=== PATIENT | female | born 1950 | race Caucasian/White ===

== ENCOUNTER 2019-05-24 13:17 | Inpatient (IN) | payer OTHER ==
[~2019-05-24] VITALS: Ht 157.5 cm; Wt 70.2 kg
[2019-05-24] VITALS (29 sets, daily range): BP systolic 111–189; BP diastolic 56–80; PULSE 79–100; RESP 10–30; Ht 157.5 cm; Wt 70.2 kg
[~2019-05-24 13:17] MED LIST: CEFAZOLIN 1 GM INJ ONE; MIDAZOLAM 1 MG/ML 2 ML INJ ONE; PROPOFOL 20 ML ONE; ROCURONIUM 50 MG INJ ONE
[2019-05-24] MEDS: LACTATED RINGER'S 1,000 ML IV SCH (14:09)
[2019-05-24] MEDS ORDERED: CEFAZOLIN 1 GM INJ ONE (14:12)
[2019-05-24] MEDS ORDERED: GELATIN SIZE 100 SPONGE ONE (14:12)
[2019-05-24] MEDS ORDERED: THROMBIN (BOVINE) 5,000 UNIT VIAL TP ONE (14:12)
[2019-05-24] MEDS ORDERED: HEPARIN 1000 UNITS/ML 10 ML INJ ONE (14:12)
[2019-05-24] MEDS ORDERED: LEVO100T8 PO (14:14)
[2019-05-24] MEDS ORDERED: PARO-37 PO (14:14)
[2019-05-24] MEDS ORDERED: LEVO88TA3 PO (14:14)
[2019-05-24] MEDS ORDERED: SURGIFOAM POWDER 1 GM KIT ONE (14:21)
[2019-05-24] MEDS ORDERED: SEVOFLURANE 15 MIN ONE (14:40)
[2019-05-24] MEDS ORDERED: EPHEDrine 25 MG/5 ML SYG ONE (14:40)
--- NOTE | 2019-05-24 14:45 | HPN ---
Date/Time of Note Date/Time of Note DATE: 05/24/19 TIME: 14:44 Interval H&P Admission Note Pt. seen H&P reviewed: No system changes Again discussed with patient and daughter pros and cons of surgery vs no surgery, various approaches, staged vs non staged. Overall risks approx 5% as printed on my preop consent form. All questions answered, no guarantees given. MARIA EUGENIA LICONA MD May 24, 2019 14:45
--- NOTE | 2019-05-24 14:59 | PREAC ---
Date/Time of Note Date/Time of Note DATE: 05/24/19 TIME: 14:56 Anesthesia Eval and Record Evaluation Time Pre-Procedure Interview DATE: 05/24/19 TIME: 14:56 Age 68 Sex female NPO: 8 hrs Preoperative diagnosis Lumbar Spinal Stenosis Planned procedure Anterior Lumbar Partial or Complete Corpectomy, Disectomy and Fusion L2-S1 using cages Titanium plate and screws Past Medical History Past Medical History: Includes Endo: Hypothyroid Psych: Depression Surgery & Anesthesia Issues No known issue Meds Anticoagulation: No Beta Norma within 24 hr: No Reason Beta Norma not given: Pt. not on B-Norma Reported Medications Paroxetine Hcl* (Paroxetine*) 20 Mg Tablet, 20 MG PO DAILY, TAB 05/24/19 Levothyroxine Sodium* (Levothyroxine Sodium*) 100 Mcg Tablet, 100 MCG PO BEFORE BREAKFAST, #30 TAB 05/24/19 Levothyroxine Sodium* (Levothyroxine Sodium*) 88 Mcg Tablet, 88 MCG PO BEFORE BREAKFAST, #30 TAB TAKE ONE TABLET BY MOUTH EVERY TWO DAYS 05/24/19 Current Medications Lactated Ringer's 1,000 ml @ 25 mls/hr Q24H IV Last administered on 05/24/19at 14:09; Admin Dose 25 MLS/HR; Start 05/24/19 at 14:00 Meds reviewed: Yes Allergies Coded Allergies: No Known Drug Allergies (Verified Allergy, Unknown, 05/24/19) Allergies Reviewed: Yes Labs/Studies Labs Reviewed: Reviewed by anesthesiologist Blood Bank Test 05/24/19 13:54 Blood Product Summary Counts test: N/A Studies: ECG (n/a), CXR (n/a) Pre-procedure Exam Last vitals Vital Signs Date Temp Pulse Resp B/P (MAP) Pulse Ox O2 O2 Flow FiO2 Time Delivery Rate 05/24/19 98.6 79 16 149/80 99 Room Air 14:04 (103) Airway: Adequate mouth opening, Adequate thyromental dist Mallampati: Mallampati II Teeth: Normal Lung: Normal Heart: Normal ASA Physical Status ASA physical status: 2 Emergency: None Planned Anesthetic General/MAC: ETT Nerve block: TAP (bilateral) Planned Pain Management Single shot nerve block, Parenteral pain med Pre-operative Attestations Prior to commencing anesthesia and surgery, the patient was re-evaluated, there was verification of: *The patient's identity *The results of appropriate recent lab work and preoperative vital signs *The above evaluation not changing prior to induction *Anesthetic plan, risk benefits, alternative and complications discussed with patient/family; questions answered; patient/family understands, accepts and wishes to proceed. SAMSON MINAYA MD May 24, 2019 14:59
[2019-05-24] MEDS ORDERED: ROPIVACAINE 0.5 % 30 ML VIAL ONE (15:03)
[2019-05-24] MEDS ORDERED: PHENYLephrine (100 MCG/ML) 10ML SYG ONE (15:05)
[2019-05-24] MEDS ORDERED: ONDANSETRON 4 MG INJ ONE (16:14)
[2019-05-24] MEDS ORDERED: METOCLOPRAMIDE 10 MG INJ ONE (16:14)
[2019-05-24] MEDS ORDERED: DEXAMETHASONE 4 MG/ML 5 ML INJ ONE (16:14)
[2019-05-24] MEDS ORDERED: SUGAMMADEX SODIUM 200 MG/2 ML VIAL IV ONE ×3 (17:24→17:36)
[2019-05-24] MEDS ORDERED: NEOMYC/POLYMYX/BACIT 30 GM OINT ONE (17:32)
--- NOTE | 2019-05-24 17:34 | OPPN ---
Date/Time of Note Date/Time of Note DATE: 05/24/19 TIME: 17:33 Operative Report Preoperative Diagnosis Mechanical LBP and LE radicular pain Postoperative Diagnosis same Operation/Procedure Performed ALIF L3-S1 Surgeon see signature line sales assistant entertainment and media Malekmehr Anesthesia: general Estimated blood loss: 150 - 200 ml's Transfusion Required none Specimen Sent Grafts/Implants PEEK cages, screws, allograft bone, formagraft Complications none MARIA EUGENIA LICONA MD May 24, 2019 17:34
[2019-05-24] MEDS ORDERED: NALOXONE (0.4 MG/ML) INJ ONE (17:53)
--- NOTE | 2019-05-24 17:56 | PAC ---
Date/Time of Note Date/Time of Note DATE: 05/24/19 TIME: 17:53 Post-Anesthesia Notes Post-Anesthesia Note Last documented vital signs Vital Signs Date Temp Pulse Resp B/P (MAP) Pulse Ox O2 O2 Flow FiO2 Time Delivery Rate 05/24/19 98.6 79 16 149/80 99 Room Air 17:44 (103) Activity: WNL Respiratory function: WNL Cardiovascular function: WNL Mental status: Baseline Pain reasonably controlled: Yes Hydration appropriate: Yes Nausea/Vomiting absent: Yes SAMSON MINAYA MD May 24, 2019 17:56
[2019-05-24] MEDS ORDERED: hydrALAzine 20 MG INJ ONE (18:24)
[2019-05-24] MEDS: hydrALAzine 20 MG INJ IV PRN ×2 (18:28→22:45)
[2019-05-24] MEDS ORDERED: METOCLOPRAMIDE 10 MG INJ IV PRN (18:30)
[2019-05-24] MEDS ORDERED: LABETALOL HCL 20MG INJ IV PRN (18:30)
[2019-05-24] MEDS ORDERED: EPHEDrine 25 MG/5 ML SYG IV PRN (18:30)
[2019-05-24] MEDS ORDERED: HYDROmorphONE 1 MG/5 ML IV SYRINGE IV PRN ×2 (18:30)
[2019-05-24] MEDS ORDERED: ONDANSETRON 4 MG INJ IV PRN ×2 (18:30→19:00)
[2019-05-24] MEDS ORDERED: FENTAnyl 50 MCG/ML VIAL IV PRN ×2 (18:30)
[2019-05-24] MEDS ORDERED: NACL 0.9% 3 ML SYG IV SCH (19:00)
[2019-05-24] MEDS ORDERED: NALOXONE (0.4 MG/ML) INJ IV PRN (19:00)
[2019-05-24] MEDS ORDERED: HYDROmorphONE 0.2 MG/ML PCA IV SCH (19:00)
[2019-05-24] MEDS: NS + KCL 20 MEQ 1,000 ML IV SCH (19:18)
--- NOTE | 2019-05-24 19:39 | OPR ---
DATE OF OPERATION: 05/24/2019 PREOPERATIVE DIAGNOSIS: Degenerative disk disease, lumbosacral spine. POSTOPERATIVE DIAGNOSIS: Degenerative disk disease, lumbosacral spine. PROCEDURES: 1. Anterior retroperitoneal exposure, interbody fusion, L3 to L4. 2. Anterior retroperitoneal exposure interbody fusion, L4 to L5. 3. Anterior retroperitoneal exposure interbody fusion, L5 to S1. 4. Repair of left common iliac vein. SURGEON: Pranay Pandey MD MECHANIC ASSISTANT: Sonny Licona MD ESTIMATED BLOOD LOSS: 120 mL. ANESTHESIA: General. INFORMED CONSENT: Risks, benefits, complications, alternative therapies were explained to the patien t. Consent was obtained. Risks and benefits that were explained to the patient included but not duckworth ited to bleeding, infection, damage to bowel, damage to ureter, wound infection, wound dehiscence, DV T, PE, loss of limb, loss of life, high-risk nature of the operation were fully explained and stresse d to the patient. All questions were answered. OPERATIVE TECHNIQUE: The patient was placed in supine position, prepped and draped in usual sterile fashion. I made a 12 cm incision in left paramedian, longitudinal, left lower quadrant extending jus t above the umbilicus. Incision was taken down to subcutaneous tissue which was then opened using el ectrocautery. Left anterior rectus sheath was opened in the direction of the wound. The left rectus muscle was mobilized superiorly and inferiorly. Bookwalter retractor was placed retracting the radha l contents to the right, left rectus muscle to left. After incising the posterior rectus sheath 3 cm superiorly, I dissected the left common iliac artery and vein, external iliac artery and vein. Midd le sacral vessels were ligated using titanium clips. The lowest segmental artery and vein on the lef t side were ligated using titanium clip. The iliolumbar vein was ligated using 2-0 silk ties and a t itanium clip. There was a small tear from branch of the left common iliac vein which was repaired us ing a 6-0 Prolene [id number]. The exposure for L3 to L4 and L4 to L5 was obtained by retracting the left common iliac artery and vein, vena cava and aorta to the right side. Exposure for L5 to S1 was obtained between the right and left common iliac artery and vein. We proceeded with the diskect samira and placement of new cage. Please refer to Dr. Licona's dictation for the details of that operati on. After all x-rays were satisfactorily read by Dr. Licona, needle count and sponge count was correc t. The wound was irrigated using antibiotic solution. Posterior rectus sheath was closed using 0 Vi cryl suture in running fashion. Anterior rectus sheath was irrigated again and closed in 2 layers of #1 Vicryl suture for anterior rectus sheath, 2-0 Vicryl suture for subcutaneous and zoe for the skin. The patient tolerated procedure well. Dictated By: PRANAY PANDEY MD FM/NTS Conf#: [id number] DID#: [id number] CC: SONNY LICONA MD;*End*
--- NOTE | 2019-05-24 19:42 | CONS ---
DATE OF ADMISSION: 05/24/2019 DATE OF CONSULTATION: 05/24/2019 REASON FOR CONSULTATION: Evaluation for spine exposure. HISTORY OF PRESENT ILLNESS: This is a 68-year-old female with history of degenerative disk disease, lumbosacral spine. The patient is here to be evaluated to undergo anterior retroperitoneal exposure and interbody fusion of lumbosacral spine. PAST MEDICAL HISTORY: None. ALLERGIES: NONE. SOCIAL HISTORY: No smoking, drinking or drug use. MEDICATION LIST: Reviewed. PHYSICAL EXAMINATION: VITAL SIGNS: Blood pressure is 110/60, pulse is 80, respirations 18. CARDIOVASCULAR: Normal S1, S2. LUNGS: Clear. ABDOMEN: Soft. EXTREMITIES: Warm. IMPRESSION: Degenerative disk disease, lumbosacral spine. RECOMMENDATIONS: We will proceed with anterior retroperitoneal exposure, interbody fusion of lumbosa cral spine. Risks, benefits, complications, alternative therapies were explained to the patient. Co nsent was obtained. Risks and benefits that were explained to the patient included but not limited t o bleeding, infection, damage to bowel, damage to ureter, wound infection, wound dehiscence, DVT, PE, loss of limb, loss of life, high-risk nature of the operation were fully explained and stressed the patient. All questions were answered. Dictated By: PRANAY MCKAY MD FM/NTS Conf#: [id number] DID#: [id number] CC: MARIA EUGENIA LICONA MD;*EndCC*
[2019-05-24] MEDS: DOCUSATE SODIUM 100 MG CAP PO SCH ×2 (19:44→20:51)
[2019-05-24] MEDS: CEFAZOLIN 2 GM/50 ML (PMX) 50 ML IVPB SCH (22:39)
[2019-05-25] VITALS (36 sets, daily range): BP systolic 100–170; BP diastolic 48–71; PULSE 88–106; RESP 8–22
[2019-05-25] MEDS: NS + KCL 20 MEQ 1,000 ML IV SCH ×3 (05:39→20:33)
[2019-05-25] MEDS: CEFAZOLIN 2 GM/50 ML (PMX) 50 ML IVPB SCH ×3 (05:39→22:04)
[2019-05-25] MEDS: DOCUSATE SODIUM 100 MG CAP PO SCH ×2 (08:15→20:35)
[2019-05-25] MEDS ORDERED: hydrALAzine 20 MG INJ ONE (13:36)
[2019-05-25] MEDS: LACTATED RINGER'S 1,000 ML IV SCH (13:40)
[2019-05-25] MEDS ORDERED: hydrALAzine 20 MG INJ IV ONE (14:00)
[2019-05-25] MEDS ORDERED: GELATIN SIZE 100 SPONGE ONE (14:13)
[2019-05-25] MEDS ORDERED: ROPIVACAINE 0.5 % 30 ML VIAL ONE (14:14)
[2019-05-25] MEDS ORDERED: THROMBIN 5000 UNIT VIAL ONE (14:14)
--- NOTE | 2019-05-25 16:26 | HPN ---
Date/Time of Note Date/Time of Note DATE: 05/25/19 TIME: 16:23 Interval H&P Admission Note Pt. seen H&P reviewed: No system changes Neurosurgery Preop Note Extensive d/w patient about all available options including surgery vs no surgery. Overall risk/complications 3-5% and benefits thoroughly discussed. All questions answered and no guarantees given. MARIA EUGENIA LICONA MD May 25, 2019 16:26
--- NOTE | 2019-05-25 16:38 | PREAC ---
Date/Time of Note Date/Time of Note DATE: 05/25/19 TIME: 16:38 Anesthesia Eval and Record Evaluation Time Pre-Procedure Interview DATE: 05/25/19 TIME: 16:38 Age 68 Sex female NPO: 8 hrs Preoperative diagnosis lumbar ddd Planned procedure posterior lumbar interbody fusion Past Medical History Past Medical History: Includes Endo: Hypothyroid Psych: Depression Surgery & Anesthesia Issues No known issue Meds Anticoagulation: No Beta Norma within 24 hr: No Reason Beta Norma not given: Pt. not on B-Norma Reported Medications Paroxetine Hcl* (Paroxetine*) 20 Mg Tablet, 20 MG PO DAILY, TAB 05/24/19 Levothyroxine Sodium* (Levothyroxine Sodium*) 100 Mcg Tablet, 100 MCG PO BEFORE BREAKFAST, #30 TAB 05/24/19 Levothyroxine Sodium* (Levothyroxine Sodium*) 88 Mcg Tablet, 88 MCG PO BEFORE BREAKFAST, #30 TAB TAKE ONE TABLET BY MOUTH EVERY TWO DAYS 05/24/19 Current Medications Lactated Ringer's 1,000 ml @ 25 mls/hr Q24H IV Last administered on 05/25/19at 13:40; Admin Dose 25 MLS/HR; Start 05/24/19 at 14:00 Acetaminophen/ Hydrocodone Bitart ([place] (5/325)) 1 tab Q4H PRN PO .PAIN 1-5; Start 05/24/19 at 19:00; Status Hold Ondansetron HCl (Zofran Inj) 4 mg Q6H PRN IV NAUSEA/VOMITING; Start 05/24/19 at 19:00 Al Hydrox/Mg Hydrox/Simethicone (Mag-Al Plus) 15 ml Q4H PRN PO .CONSTIPATION; Start 05/24/19 at 19:00 Docusate Sodium (Colace) 100 mg BID PO Last administered on 05/25/19at 08:15; Admin Dose 100 MG; Start 05/24/19 at 19:00 IV Flush (NS 3 ml) 3 ml PER PROTOCOL IV ; Start 05/24/19 at 19:00 Hydromorphone HCl (Dilaudid PROJECTS MANAGER) Q4PCA IV Last administered on 05/24/19at 18:57; Admin Dose 6 MG; Start 05/24/19 at 19:00 Naloxone HCl (Narcan) 0.2 mg Q2M PRN IV RR 8 BREATHS/MIN OR LESS; Start 05/24/19 at 19:00 Potassium Chloride/Sodium Chloride 1,000 ml @ 100 mls/hr Q10H IV Last administered on 05/25/19at 13:40; Admin Dose 100 MLS/HR; Start 05/24/19 at 19:00 Cefazolin Sodium/ Dextrose 50 ml @ 100 mls/hr Q8 IVPB Last administered on 05/25/19at 13:40; Admin Dose 100 MLS/HR; Start 05/24/19 at 22:00; Stop 05/27/19 at 22:00 Meds reviewed: Yes Allergies Coded Allergies: No Known Drug Allergies (Verified Allergy, Unknown, 05/24/19) Allergies Reviewed: Yes Labs/Studies Labs Reviewed: Reviewed by anesthesiologist Result Diagram: 05/25/19 0400 05/25/19 0400 Laboratory Tests 05/25/19 04:00 test: Negative Studies: ECG Pre-procedure Exam Last vitals Vital Signs Date Temp Pulse Resp B/P (MAP) Pulse Ox O2 O2 Flow FiO2 Time Delivery Rate 05/25/19 102 15 102/48 100 Nasal 2.0 15:00 (66) Cannula 05/25/19 98.7 12:00 Airway: Adequate mouth opening, Adequate thyromental dist Mallampati: Mallampati II Teeth: Abnormal Lung: Normal Heart: Normal ASA Physical Status ASA physical status: 2 Emergency: None Planned Anesthetic General/MAC: ETT Pre-operative Attestations Prior to commencing anesthesia and surgery, the patient was re-evaluated, there was verification of: *The patient's identity *The results of appropriate recent lab work and preoperative vital signs *The above evaluation not changing prior to induction *Anesthetic plan, risk benefits, alternative and complications discussed with patient/family; questions answered; patient/family understands, accepts and wishes to proceed. RICHARDSON ARZATE May 25, 2019 16:38
[2019-05-25] MEDS ORDERED: FENTAnyl 50 MCG/ML VIAL ONE (16:54)
[2019-05-25] MEDS ORDERED: LIDOCAINE 2% (SDV) 5 ML INJ ONE (16:54)
--- NOTE | 2019-05-25 17:04 | HP ---
Date/Time of Note Date/Time of Note DATE: 05/25/19 TIME: 16:56 Assessment/Plan VTE Prophylaxis Risk score (from Nsg)>0 risk: 11 SCD applied (from Nsg): Yes Pharmacological prophylaxis: NA/contraindicated Pharm contraindication: surgical contra Lines/Catheters IV Catheter Type (from Nrsg): Peripheral IV Urinary Cath still in place: Yes Reason Cath still needed: urinary retention Assessment/Plan Assessment/Plan -Mechanical LBP and LE radicular pain. Status post anterior lumbar interbody fusion of L3-S1 by Dr. Scott with retroperitoneal exposure of the lumbar spine by Dr. Pandey on 05/24/2019. Continue Dilaudid CPAS as needed for pain. Patient will undergo posterior portion of the surgery tonight. Continue IV fluids and postoperative antibiotic. -Hypothyroidism, continue Synthroid. -Depression continue Prozac. Further recommendations based on clinical course. Plan of care discussed with Dr. Leon. Result Diagram: 05/25/19 0400 05/25/19 0400 Results 24hrs Laboratory Tests Test 05/25/19 04:00 05/25/19 04:54 Hemoglobin 11.8 L Hematocrit 35.3 L Sodium Level 140 Potassium Level 4.2 Chloride Level 108 Carbon Dioxide Level 26 Anion Gap 6 Blood Urea Nitrogen 13 Creatinine 0.53 Est Glomerular Filtrat Rate mL/min > 60 Glucose Level 154 Calcium Level 8.7 Lab Scanned Report REFERENCE LAB HPI/ROS Admit Date/Time Admit Date/Time May 24, 2019 at 13:17 Hx of Present Illness The patient is a 68-year-old female with mechanical lower back pain with lower extremity radiculopathy who failed conservative treatment. Patient was evaluated by Dr. Scott in neurosurgery consultation as was a candidate for anterior lumbar interbody fusion. Patient was brought to the hospital and underwent anterior lumbar interbody fusion of L3-S1. Patient is seen in i ntensive care unit. Patient is awake alert and oriented continued on CPAS Dilaudid for pain. Patient denies any shortness of breath denies any chest pain denies any fever chills. Patient will undergo posterior portion of the surgery tonight. ROS 12 point review of system is negative except for what mentioned in HPI PMH/Family/Social Past Medical History Medical History: hypothyroid, other (Depression) Medications Current Medications Lactated Ringer's 1,000 ml @ 25 mls/hr Q24H IV Last administered on 05/25/19at 13:40; Admin Dose 25 MLS/HR; Start 05/24/19 at 14:00 Acetaminophen/ Hydrocodone Bitart ([place] (5/325)) 1 tab Q4H PRN PO .PAIN 1-5; Start 05/24/19 at 19:00; Status Hold Ondansetron HCl (Zofran Inj) 4 mg Q6H PRN IV NAUSEA/VOMITING; Start 05/24/19 at 19:00 Al Hydrox/Mg Hydrox/Simethicone (Mag-Al Plus) 15 ml Q4H PRN PO .CONSTIPATION; Start 05/24/19 at 19:00 Docusate Sodium (Colace) 100 mg BID PO Last administered on 05/25/19at 08:15; Admin Dose 100 MG; Start 05/24/19 at 19:00 IV Flush (NS 3 ml) 3 ml PER PROTOCOL IV ; Start 05/24/19 at 19:00 Hydromorphone HCl (Dilaudid CPAS) Q4PCA IV Last administered on 05/24/19at 18:57; Admin Dose 6 MG; Start 05/24/19 at 19:00 Naloxone HCl (Narcan) 0.2 mg Q2M PRN IV RR 8 BREATHS/MIN OR LESS; Start 05/24/19 at 19:00 Potassium Chloride/Sodium Chloride 1,000 ml @ 100 mls/hr Q10H IV Last administered on 05/25/19at 13:40; Admin Dose 100 MLS/HR; Start 05/24/19 at 19:00 Cefazolin Sodium/ Dextrose 50 ml @ 100 mls/hr Q8 IVPB Last administered on 05/25/19at 13:40; Admin Dose 100 MLS/HR; Start 05/24/19 at 22:00; Stop 05/27/19 a t 22:00 Coded Allergies: No Known Drug Allergies (Verified Allergy, Unknown, 05/24/19) Past Surgical History Past Surgical Hx: other (Status post eyelid surgery) Family History Significant Family History: no pertinent family hx Social History Alcohol Use: none Smoking Status: Never smoker Drug Use: none Exam/Review of Systems Vital Signs Vitals Vital Signs Date Temp Pulse Resp B/P (MAP) Pulse Ox O2 O2 Flow FiO2 Time Delivery Rate 05/25/19 105 16:00 05/25/19 15 102/48 100 Nasal 2.0 15:00 (66) Cannula 05/25/19 98.7 12:00 Intake and Output 05/24/19 05/24/19 05/25/19 1414:59 22:59 06:59 IntakeIntake Total 2460 ml 900 ml OutputOutput Total 725 ml 385 ml BalanceBalance 1735 ml 515 ml Exam Constitutional: alert, oriented Head: normocephalic Neck: supple Respiratory: clear to auscultation Cardiovascular: regular rate and rhythm Gastrointestinal: soft, non-tender, other (Status post surgery with dry clean intact dressing) Musculoskeletal: nl extremities to inspection Extremities: normal pulses SINAI CORRALES May 25, 2019 17:04
[2019-05-25] MEDS ORDERED: ROPIVACAINE 0.5 % 30 ML VIAL INJ ONE ×2 (17:54→17:55)
[2019-05-25] MEDS ORDERED: THROMBIN 5000 UNIT VIAL TOP ONE (17:55)
[2019-05-25] MEDS ORDERED: GELATIN COMPRESSED 100CM SPONGE TOP ONE (17:56)
[2019-05-25] MEDS ORDERED: CEFAZOLIN 1 GM INJ ONE (18:12)
[2019-05-25] MEDS ORDERED: ROCURONIUM 50 MG INJ ONE (18:12)
[2019-05-25] MEDS ORDERED: PROPOFOL 20 ML ONE (18:12)
[2019-05-25] MEDS ORDERED: SUCCINYLCHOLINE CHLORIDE 100 MG/5 ML SYG IV ONE (18:12)
[2019-05-25] MEDS ORDERED: SUGAMMADEX SODIUM 200 MG/2 ML VIAL IV ONE (18:13)
--- NOTE | 2019-05-25 18:43 | OPPN ---
Date/Time of Note Date/Time of Note DATE: 05/25/19 TIME: 18:40 Operative Report Preoperative Diagnosis Mechanical LBP with LE Radiculopathy Postoperative Diagnosis same Operation/Procedure Performed Posterior L2-S1 ISF Placement. Surgeon see signature line telecom assistant VÍCTOR Orta, ACNP_BC Anesthesia: general Estimated blood loss: 10 - 50 ml's Transfusion Required none Specimen Bone Ligaments L2-S1 Grafts/Implants none Complications none MARIA EUGENIA LICONA MD May 25, 2019 18:43
[2019-05-26] VITALS (36 sets, daily range): BP systolic 95–144; BP diastolic 50–67; PULSE 77–112; RESP 9–29
[2019-05-26] MEDS: CEFAZOLIN 2 GM/50 ML (PMX) 50 ML IVPB SCH ×3 (05:43→22:07)
--- NOTE | 2019-05-26 07:36 | PAC ---
Date/Time of Note Date/Time of Note DATE: 05/26/19 TIME: 07:36 Post-Anesthesia Notes Post-Anesthesia Note Last documented vital signs Vital Signs Date Temp Pulse Resp B/P (MAP) Pulse Ox O2 O2 Flow FiO2 Time Delivery Rate 05/26/19 104 13 141/56 98 06:45 (84) 05/26/19 Nasal 4.0 06:00 Cannula 05/26/19 98.9 04:00 Activity: WNL Respiratory function: WNL Cardiovascular function: WNL Mental status: Baseline Pain reasonably controlled: Yes Hydration appropriate: Yes Nausea/Vomiting absent: Yes RICHARDSON ARZATE May 26, 2019 07:36
[2019-05-26] MEDS: LEVOTHYROXINE 100 MCG TAB PO SCH (08:10)
[2019-05-26] MEDS: NS + KCL 20 MEQ 1,000 ML IV SCH (09:02)
[2019-05-26] MEDS: DOCUSATE SODIUM 100 MG CAP PO SCH ×2 (09:02→22:07)
[2019-05-26] MEDS: PAROXETINE 20 MG TAB PO SCH (09:02)
[2019-05-26] MEDS: HYDROCODONE/APAP (5/325) TAB PO PRN ×2 (11:17→18:32)
--- NOTE | 2019-05-26 13:34 | PN ---
Date/Time of Note Date/Time of Note DATE: 05/26/19 TIME: 13:32 Assessment/Plan VTE Prophylaxis Risk score (from Ns)>0 risk: 2 SCD applied (from Ns): Yes SCD contraindicated: low risk/ambulating Pharmacological prophylaxis: NA/contraindicated Pharm contraindication: low risk/ambulating Lines/Catheters IV Catheter Type (from [facility]): Sal[place] Lock [place] line still needed: No Urinary Cath still in place: No Assessment/Plan Assessment/Plan Neurosurgery Progress Note Patient seen and examined s/p L3-S1 ALIF s/p Posterior L2-S1 ISF placement doing well overall CT Lspine stable Surgical site:CDI Plan cont supportive care pt/ot with brace encourage IS x 10 dc vale in 1-2 days dc snyder in am dc planning Thursday/Thursday if medically stable Result Diagram: 05/26/19 0500 05/26/19 0500 Results 24hrs Laboratory Tests Test 05/26/19 05:00 White Blood Count 9.2 Red Blood Count 3.16 L Hemoglobin 10.0 L Hematocrit 29.3 L Mean Corpuscular Volume 92.7 Mean Corpuscular Hemoglobin 31.6 Mean Corpuscular Hemoglobin Concent 34.1 Red Cell Distribution Width 13.7 Platelet Count 179 Mean Platelet Volume 10.8 H Immature Granulocytes % 0.400 Neutrophils % 75.6 Lymphocytes % 13.8 L Monocytes % 10.0 Eosinophils % 0.1 Basophils % 0.1 Nucleated Red Blood Cells % 0.0 Immature Granulocytes # 0.040 H Neutrophils # 6.9 Lymphocytes # 1.3 Monocytes # 0.9 Eosinophils # 0.0 Basophils # 0.0 Nucleated Red Blood Cells # 0.0 Sodium Level 142 Potassium Level 4.2 Chloride Level 110 Carbon Dioxide Level 25 Anion Gap 7 Blood Urea Nitrogen 12 Creatinine 0.57 Est Glomerular Filtrat Rate mL/min > 60 Glucose Level 114 # Calcium Level 9.0 Subjective 24 Hr Interval Summary Free Text/Dictation Neurosurgery Progress Note Patient seen and examined transferred out of icu ambulating well with pt/ot no complaints of LE radic family at bedside Exam/Review of Systems Exam Vitals Vital Signs Date Temp Pulse Resp B/P (MAP) Pulse Ox O2 O2 Flow FiO2 Time Delivery Rate 05/26/19 98.2 101 14 107/57 91 Room Air 12:00 (74) 05/26/19 4.0 11:00 Intake and Output 05/25/19 05/25/19 05/26/19 1515:00 23:00 07:00 IntakeIntake Total 1000 ml 1555 ml 950 ml OutputOutput Total 790 ml 620 ml 535 ml BalanceBalance 210 ml 935 ml 415 ml Neurological: other (MS: AAOX4 CN: PERRL M: FC x 4 , no focal def. Surgical site: CDI ) Results Results 24hrs Laboratory Tests Test 05/26/19 05:00 White Blood Count 9.2 Red Blood Count 3.16 L Hemoglobin 10.0 L Hematocrit 29.3 L Mean Corpuscular Volume 92.7 Mean Corpuscular Hemoglobin 31.6 Mean Corpuscular Hemoglobin Concent 34.1 Red Cell Distribution Width 13.7 Platelet Count 179 Mean Platelet Volume 10.8 H Immature Granulocytes % 0.400 Neutrophils % 75.6 Lymphocytes % 13.8 L Monocytes % 10.0 Eosinophils % 0.1 Basophils % 0.1 Nucleated Red Blood Cells % 0.0 Immature Granulocytes # 0.040 H Neutrophils # 6.9 Lymphocytes # 1.3 Monocytes # 0.9 Eosinophils # 0.0 Basophils # 0.0 Nucleated Red Blood Cells # 0.0 Sodium Level 142 Potassium Level 4.2 Chloride Level 110 Carbon Dioxide Level 25 Anion Gap 7 Blood Urea Nitrogen 12 Creatinine 0.57 Est Glomerular Filtrat Rate mL/min > 60 Glucose Level 114 # Calcium Level 9.0 Medications Medication Current Medications Acetaminophen/ Hydrocodone Bitart ([place] (5/325)) 1 tab Q4H PRN PO .PAIN 1-5 Last administered on 05/26/19at 11:17; Admin Dose 1 TAB; Start 05/24/19 at 19:00 Ondansetron HCl (Zofran Inj) 4 mg Q6H PRN IV NAUSEA/VOMITING; Start 05/24/19 at 19:00 Al Hydrox/Mg Hydrox/Simethicone (Mag-Al Plus) 15 ml Q4H PRN PO .CONSTIPATION; Start 05/24/19 at 19:00 Docusate Sodium (Colace) 100 mg BID PO Last administered on 05/26/19at 09:02; Admin Dose 100 MG; Start 05/24/19 at 19:00 IV Flush (NS 3 ml) 3 ml PER PROTOCOL IV ; Start 05/24/19 at 19:00 Cefazolin Sodium/ Dextrose 50 ml @ 100 mls/hr Q8 IVPB Last administered on 05/26/19at 05:43; Admin Dose 100 MLS/HR; Start 05/24/19 at 22:00; Stop 05/27/19 at 22:00 Levothyroxine Sodium (Synthroid) 88 mcg Q2D@0700 PO ; Start 05/27/19 at 07:00 Levothyroxine Sodium (Synthroid) 100 mcg Q2D@0700 PO Last administered on 05/26/19at 08:10; Admin Dose 100 MCG; Start 05/26/19 at 07:00 Paroxetine HCl (Paxil) 20 mg DAILY PO Last administered on 05/26/19at 09:02; Admin Dose 20 MG; Start 05/26/19 at 09:00 ARCADIO BAUM NP May 26, 2019 13:34
--- NOTE | 2019-05-26 20:22 | PN ---
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 Assessment/Plan -Mechanical LBP and LE radicular pain. Status post anterior lumbar interbody fusion of L3-S1 by Dr. Scott with retroperitoneal exposure of the lumbar spine by Dr. Pandey on 05/24/2019. S/p Posterior L2-S1 ISF placement on 05/25/[address] Scott. 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 Patient will undergo posterior portion of the surgery tonight. Continue IV fluids and postoperative antibiotic. -Hypothyroidism, continue Synthroid. -Depression continue Prozac. Further recommendations based on clinical course. Plan of care discussed with Dr. Leon. Result Diagram: 05/26/19 0500 05/26/19 0500 Results 24hrs Laboratory Tests Test 05/26/19 05:00 White Blood Count 9.2 Red Blood Count 3.16 L Hemoglobin 10.0 L Hematocrit 29.3 L Mean Corpuscular Volume 92.7 Mean Corpuscular Hemoglobin 31.6 Mean Corpuscular Hemoglobin Concent 34.1 Red Cell Distribution Width 13.7 Platelet Count 179 Mean Platelet Volume 10.8 H Immature Granulocytes % 0.400 Neutrophils % 75.6 Lymphocytes % 13.8 L Monocytes % 10.0 Eosinophils % 0.1 Basophils % 0.1 Nucleated Red Blood Cells % 0.0 Immature Granulocytes # 0.040 H Neutrophils # 6.9 Lymphocytes # 1.3 Monocytes # 0.9 Eosinophils # 0.0 Basophils # 0.0 Nucleated Red Blood Cells # 0.0 Sodium Level 142 Potassium Level 4.2 Chloride Level 110 Carbon Dioxide Level 25 Anion Gap 7 Blood Urea Nitrogen 12 Creatinine 0.57 Est Glomerular Filtrat Rate mL/min > 60 Glucose Level 114 # Calcium Level 9.0 Exam/Review of Systems Exam Vitals Vital Signs Date Temp Pulse Resp B/P (MAP) Pulse Ox O2 O2 Flow FiO2 Time Delivery Rate 05/26/19 98.0 77 18 102/59 99 14:16 (73) 05/26/19 Room Air 12:00 05/26/19 4.0 11:00 Intake and Output 05/25/19 05/25/19 05/26/19 1515:00 23:00 07:00 IntakeIntake Total 1000 ml 1555 ml 950 ml OutputOutput Total 790 ml 620 ml 535 ml BalanceBalance 210 ml 935 ml 415 ml Exam Constitutional: alert, oriented Respiratory: clear to auscultation Cardiovascular: regular rate and rhythm Gastrointestinal: soft, non-tender, other (Status post surgery with dry clean intact dressing) Musculoskeletal: nl extremities to inspection (S/p surgery lower back, JPs) Extremities: normal pulses Results Results 24hrs Laboratory Tests Test 05/26/19 05:00 White Blood Count 9.2 Red Blood Count 3.16 L Hemoglobin 10.0 L Hematocrit 29.3 L Mean Corpuscular Volume 92.7 Mean Corpuscular Hemoglobin 31.6 Mean Corpuscular Hemoglobin Concent 34.1 Red Cell Distribution Width 13.7 Platelet Count 179 Mean Platelet Volume 10.8 H Immature Granulocytes % 0.400 Neutrophils % 75.6 Lymphocytes % 13.8 L Monocytes % 10.0 Eosinophils % 0.1 Basophils % 0.1 Nucleated Red Blood Cells % 0.0 Immature Granulocytes # 0.040 H Neutrophils # 6.9 Lymphocytes # 1.3 Monocytes # 0.9 Eosinophils # 0.0 Basophils # 0.0 Nucleated Red Blood Cells # 0.0 Sodium Level 142 Potassium Level 4.2 Chloride Level 110 Carbon Dioxide Level 25 Anion Gap 7 Blood Urea Nitrogen 12 Creatinine 0.57 Est Glomerular Filtrat Rate mL/min > 60 Glucose Level 114 # Calcium Level 9.0 Medications Medication Current Medications Acetaminophen/ Hydrocodone Bitart ([place] (5/325)) 1 tab Q4H PRN PO .PAIN 1-5 Last administered on 05/26/19at 18:32; Admin Dose 1 TAB; Start 05/24/19 at 19:00 Ondansetron HCl (Zofran Inj) 4 mg Q6H PRN IV NAUSEA/VOMITING; Start 05/24/19 at 19:00 Al Hydrox/Mg Hydrox/Simethicone (Mag-Al Plus) 15 ml Q4H PRN PO .CONSTIPATION; Start 05/24/19 at 19:00 Docusate Sodium (Colace) 100 mg BID PO Last administered on 05/26/19at 09:02; Admin Dose 100 MG; Start 05/24/19 at 19:00 IV Flush (NS 3 ml) 3 ml PER PROTOCOL IV ; Start 05/24/19 at 19:00 Cefazolin Sodium/ Dextrose 50 ml @ 100 mls/hr Q8 IVPB Last administered on 05/26/19at 14:24; Admin Dose 100 MLS/HR; Start 05/24/19 at 22:00; Stop 05/27/19 at 22:00 Levothyroxine Sodium (Synthroid) 88 mcg Q2D@0700 PO ; Start 05/27/19 at 07:00 Levothyroxine Sodium (Synthroid) 100 mcg Q2D@0700 PO Last administered on 05/26/19at 08:10; Admin Dose 100 MCG; Start 05/26/19 at 07:00 Paroxetine HCl (Paxil) 20 mg DAILY PO Last administered on 05/26/19at 09:02; Admin Dose 20 MG; Start 05/26/19 at 09:00 SINAI CORRALES May 26, 2019 20:22
[2019-05-26] MEDS ORDERED: HYDROmorphONE 1 MG/ML SYG IV PRN (20:30)
[2019-05-27 00:39] VITALS: BP 97/50; PULSE 102; RESP 18
[2019-05-27] MEDS: LEVOTHYROXINE 88 MCG TAB PO SCH (06:38)
[2019-05-27] MEDS: HYDROCODONE/APAP (5/325) TAB PO PRN ×3 (06:39→21:57)
[2019-05-27] MEDS: CEFAZOLIN 2 GM/50 ML (PMX) 50 ML IVPB SCH ×3 (06:39→21:50)
[2019-05-27 08:21] VITALS: BP 116/57; PULSE 92; RESP 18
[2019-05-27] MEDS: DOCUSATE SODIUM 100 MG CAP PO SCH ×2 (08:30→21:50)
[2019-05-27] MEDS: PAROXETINE 20 MG TAB PO SCH (08:30)
[2019-05-27 14:22] VITALS: BP 118/60; PULSE 99; RESP 18
[2019-05-27 19:20] VITALS: BP 119/59; PULSE 91; RESP 20
[2019-05-28 01:10] VITALS: BP 117/57; PULSE 90; RESP 18
[2019-05-28] MEDS: HYDROCODONE/APAP (5/325) TAB PO PRN ×3 (04:20→19:29)
[2019-05-28] MEDS: LEVOTHYROXINE 100 MCG TAB PO SCH (07:23)
[2019-05-28 07:31] VITALS: BP 113/57; PULSE 86; RESP 18
[2019-05-28] MEDS: DOCUSATE SODIUM 100 MG CAP PO SCH ×2 (08:36→21:04)
[2019-05-28] MEDS: PAROXETINE 20 MG TAB PO SCH (08:36)
--- NOTE | 2019-05-28 10:51 | PN ---
Date/Time of Note Date/Time of Note DATE: 05/28/19 TIME: 10:50 Assessment/Plan VTE Prophylaxis Risk score (from Nsg)>0 risk: 3 SCD applied (from Nsg): Yes Pharmacological prophylaxis: LMWH Lines/Catheters IV Catheter Type (from Nrsg): Saline Lock Urinary Cath still in place: Yes Reason Cath still needed: skin wounds contaminated by urine Assessment/Plan Hospital Course -Mechanical LBP and LE radicular pain. Status post anterior lumbar interbody fusion of L3-S1 by Dr. Scott with retroperitoneal exposure of the lumbar spine by Dr. Pandey on 05/24/2019. S/p Posterior L2-S1 ISF placement on 05/25/[address] Scott. 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 Patient will undergo posterior portion of the surgery tonight. Continue IV fluids and postoperative antibiotic. -Hypothyroidism, continue Synthroid. -Depression continue Prozac. Result Diagram: 05/27/199 05/27/19438 Subjective 24 Hr Interval Summary Free Text/Dictation Patient has pain but has ambulated Exam/Review of Systems Exam Vitals Vital Signs Date Temp Pulse Resp B/P (MAP) Pulse Ox O2 O2 Flow FiO2 Time Delivery Rate 05/28/19 98.6 86 18 113/57 93 07:31 (75) 05/27/19 Room Air 14:22 05/27/19 4.0 00:40 Intake and Output 05/27/19 05/27/19 05/28/19 1515:00 23:00 07:00 IntakeIntake Total 490 ml 720 ml OutputOutput Total 430 ml BalanceBalance 490 ml 290 ml Constitutional: well developed Head: normocephalic, atraumatic Neck: supple Respiratory: diminished breath sounds Cardiovascular: regular rate and rhythm Gastrointestinal: soft, non-tender Extremities: normal pulses Medications Medication Current Medications Acetaminophen/ Hydrocodone Bitart ([place] (5/325)) 1 tab Q4H PRN PO .PAIN 1-5 Last administered on 05/28/19at 04:20; Admin Dose 1 TAB; Start 05/24/19 at 19:00 Ondansetron HCl (Zofran Inj) 4 mg Q6H PRN IV NAUSEA/VOMITING; Start 05/24/19 at 19:00 Al Hydrox/Mg Hydrox/Simethicone (Mag-Al Plus) 15 ml Q4H PRN PO .CONSTIPATION; Start 05/24/19 at 19:00 Docusate Sodium (Colace) 100 mg BID PO Last administered on 05/28/19at 08:36; Admin Dose 100 MG; Start 05/24/19 at 19:00 IV Flush (NS 3 ml) 3 ml PER PROTOCOL IV ; Start 05/24/19 at 19:00 Levothyroxine Sodium (Synthroid) 88 mcg Q2D@0700 PO Last administered on 05/27/19at 06:38; Admin Dose 88 MCG; Start 05/27/19 at 07:00 Levothyroxine Sodium (Synthroid) 100 mcg Q2D@0700 PO Last administered on 05/28/19at 07:23; Admin Dose 100 MCG; Start 05/26/19 at 07:00 Paroxetine HCl (Paxil) 20 mg DAILY PO Last administered on 05/28/19at 08:36; Admin Dose 20 MG; Start 05/26/19 at 09:00 Hydromorphone HCl (Dilaudid) 1 mg Q3H PRN IV SEVERE PAIN LEVEL 7-10; Start 05/26/19 at 20:30 DONNA LOERA May 28, 2019 10:51
--- NOTE | 2019-05-28 14:00 | PN ---
Date/Time of Note Date/Time of Note DATE: 05/28/19 TIME: 13:59 Assessment/Plan VTE Prophylaxis Risk score (from Nsg)>0 risk: 3 SCD applied (from Nsg): Yes SCD contraindicated: low risk/ambulating Pharmacological prophylaxis: NA/contraindicated Pharm contraindication: low risk/ambulating Lines/Catheters IV Catheter Type (from Nrsg): Saline Lock Central line still needed: No Urinary Cath still in place: No Assessment/Plan Assessment/Plan Assessment/Plan Neurosurgery Progress Note Patient seen and examined s/p L3-S1 ALIF s/p Posterior L2-S1 ISF placement CT Lspine stable Surgical site:CDI FLORA with scant out Plan cont supportive care pt/ot with brace encourage IS x 10 okay to shower Thursday dc planning Thursday if medically stable LSO brace x 6 weeks when oob Follow up with in2 weeks Result Diagram: 05/27/19 0439 05/27/19438 Subjective 24 Hr Interval Summary Free Text/Dictation Neurosurgery S: doing well Exam/Review of Systems Exam Vitals Vital Signs Date Temp Pulse Resp B/P (MAP) Pulse Ox O2 O2 Flow FiO2 Time Delivery Rate 05/28/19 98.6 86 18 113/57 93 07:31 (75) 05/27/19 Room Air 14:22 05/27/19 4.0 00:40 Intake and Output 05/27/19 05/27/19 05/28/19 1515:00 23:00 07:00 IntakeIntake Total 490 ml 720 ml OutputOutput Total 430 ml BalanceBalance 490 ml 290 ml Medications Medication Current Medications Acetaminophen/ Hydrocodone Bitart ([place] (5/325)) 1 tab Q4H PRN PO .PAIN 1-5 Last administered on 05/28/19at 11:24; Admin Dose 1 TAB; Start 05/24/19 at 19:00 Ondansetron HCl (Zofran Inj) 4 mg Q6H PRN IV NAUSEA/VOMITING; Start 05/24/19 at 19:00 Al Hydrox/Mg Hydrox/Simethicone (Mag-Al Plus) 15 ml Q4H PRN PO .CONSTIPATION; Start 05/24/19 at 19:00 Docusate Sodium (Colace) 100 mg BID PO Last administered on 05/28/19at 08:36; Admin Dose 100 MG; Start 05/24/19 at 19:00 IV Flush (NS 3 ml) 3 ml PER PROTOCOL IV ; Start 05/24/19 at 19:00 Levothyroxine Sodium (Synthroid) 88 mcg Q2D@0700 PO Last administered on 05/27/19at 06:38; Admin Dose 88 MCG; Start 05/27/19 at 07:00 Levothyroxine Sodium (Synthroid) 100 mcg Q2D@0700 PO Last administered on 05/28/19at 07:23; Admin Dose 100 MCG; Start 05/26/19 at 07:00 Paroxetine HCl (Paxil) 20 mg DAILY PO Last administered on 05/28/19at 08:36; Admin Dose 20 MG; Start 05/26/19 at 09:00 Hydromorphone HCl (Dilaudid) 1 mg Q3H PRN IV SEVERE PAIN LEVEL 7-10; Start 05/26/19 at 20:30 ARCADIO BAUM NP May 28, 2019 14:00
[2019-05-28 14:28] VITALS: BP 115/59; PULSE 83; RESP 18
[2019-05-28 14:32] VITALS: BP 115/59; PULSE 92; RESP 18
[2019-05-28 20:00] VITALS: BP 121/57; PULSE 94; RESP 18
[2019-05-29 02:00] VITALS: BP 129/60; PULSE 83; RESP 17
[2019-05-29] MEDS: HYDROCODONE/APAP (5/325) TAB PO PRN ×3 (03:08→20:21)
[2019-05-29] MEDS: LEVOTHYROXINE 88 MCG TAB PO SCH (06:08)
[2019-05-29 07:30] VITALS: BP 116/56; PULSE 83; RESP 18
[2019-05-29] MEDS: PAROXETINE 20 MG TAB PO SCH (08:19)
[2019-05-29] MEDS: DOCUSATE SODIUM 100 MG CAP PO SCH ×2 (08:19→20:21)
--- NOTE | 2019-05-29 11:38 | PN ---
Date/Time of Note Date/Time of Note DATE: 05/29/19 TIME: 11:37 Assessment/Plan VTE Prophylaxis Risk score (from Ns)>0 risk: 8 SCD applied (from Ns): No SCD contraindicated: other Pharmacological prophylaxis: LMWH Lines/Catheters IV Catheter Type (from Nrsg): Saline Lock Urinary Cath still in place: No Assessment/Plan Hospital Course -Mechanical LBP and LE radicular pain. Status post anterior lumbar interbody fusion of L3-S1 by Dr. Scott with retroperitoneal exposure of the lumbar spine by Dr. Pandey on 05/24/2019. S/p Posterior L2-S1 ISF placement on 05/25/[address] Scott. 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 Patient will undergo posterior portion of the surgery tonight. Continue IV fluids and postoperative antibiotic. -Hypothyroidism, continue Synthroid. -Depression continue Prozac. Result Diagram: 05/27/199 05/27/19438 Subjective 24 Hr Interval Summary Free Text/Dictation Patient has pain in back but stable Exam/Review of Systems Exam Vitals Vital Signs Date Temp Pulse Resp B/P (MAP) Pulse Ox O2 O2 Flow FiO2 Time Delivery Rate 05/29/19 98.0 83 18 116/56 97 07:30 (76) 05/27/19 Room Air 14:22 05/27/19 4.0 00:40 Intake and Output 05/28/19 05/28/19 05/29/19 1515:00 23:00 07:00 IntakeIntake Total 300 ml 640 ml 240 ml OutputOutput Total 20 ml BalanceBalance 280 ml 640 ml 240 ml Constitutional: well developed Head: normocephalic, atraumatic Neck: supple Respiratory: diminished breath sounds Cardiovascular: regular rate and rhythm Gastrointestinal: soft, non-tender Extremities: normal pulses Medications Medication Current Medications Acetaminophen/ Hydrocodone Bitart ([place] (5/325)) 1 tab Q4H PRN PO .PAIN 1-5 Last administered on 05/29/19at 03:08; Admin Dose 1 TAB; Start 05/24/19 at 19:00 Ondansetron HCl (Zofran Inj) 4 mg Q6H PRN IV NAUSEA/VOMITING; Start 05/24/19 at 19:00 Al Hydrox/Mg Hydrox/Simethicone (Mag-Al Plus) 15 ml Q4H PRN PO .CONSTIPATION; Start 05/24/19 at 19:00 Docusate Sodium (Colace) 100 mg BID PO Last administered on 05/29/19 08:19; Admin Dose 100 MG; Start 05/24/19 at 19:00 IV Flush (NS 3 ml) 3 ml PER PROTOCOL IV ; Start 05/24/19 at 19:00 Levothyroxine Sodium (Synthroid) 88 mcg Q2D@0700 PO Last administered on 05/29/19at 06:08; Admin Dose 88 MCG; Start 05/27/19 at 07:00 Levothyroxine Sodium (Synthroid) 100 mcg Q2D@0700 PO Last administered on 05/28/19at 07:23; Admin Dose 100 MCG; Start 05/26/19 at 07:00 Paroxetine HCl (Paxil) 20 mg DAILY PO Last administered on 05/29/19 08:19; Admin Dose 20 MG; Start 05/26/19 at 09:00 Hydromorphone HCl (Dilaudid) 1 mg Q3H PRN IV SEVERE PAIN LEVEL 7-10; Start 05/26/19 at 20:30 DONNA LOERA May 29, 2019 11:38
[2019-05-29 14:00] VITALS: BP 120/60; PULSE 82; RESP 18
[2019-05-29] MEDS: AL HYDROX/MG HYDROX/SIMETH 30 ML CUP PO PRN (16:38)
[2019-05-29 19:09] VITALS: BP 110/56; PULSE 82; RESP 18
[2019-05-30 01:32] VITALS: BP 133/70; PULSE 82; RESP 18
[2019-05-30] MEDS: LEVOTHYROXINE 100 MCG TAB PO SCH (06:20)
[2019-05-30] MEDS: AL HYDROX/MG HYDROX/SIMETH 30 ML CUP PO PRN (06:21)
[2019-05-30 07:11] VITALS: BP 119/62; PULSE 81; RESP 18
[2019-05-30] MEDS: PAROXETINE 20 MG TAB PO SCH (08:51)
[2019-05-30] MEDS: HYDROCODONE/APAP (5/325) TAB PO PRN ×2 (08:52→14:49)
[2019-05-30] MEDS: DOCUSATE SODIUM 100 MG CAP PO SCH (08:52)
[2019-05-30 14:20] VITALS: BP 120/89; PULSE 88; RESP 18
[2019-05-30] MEDS ORDERED: DOCU-144 PO (14:56)
[2019-05-30] MEDS ORDERED: HYDR-3601 PO (14:56)
--- NOTE | 2019-05-30 22:11 | DS ---
Date/Time of Note Date/Time of Note DATE: 05/30/19 TIME: 22:08 Discharge Summary Admission/Discharge Info Admit Date/Time May 24, 2019 at 13:17 Discharge Date/Time May 30, 2019 at 16:30 Hx of Present Illness The patient is a 68-year-old female with mechanical lower back pain with lower extremity radiculopathy who failed conservative treatment. Patient was evaluated by Dr. Scott in neurosurgery consultation as was a candidate for anterior lumbar interbody fusion. Patient was brought to the hospital and underwent anterior lumbar interbody fusion of L3-S1. Patient is seen in intensive care unit. 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 Patient denies any shortness of breath denies any chest pain denies any fever chills. Patient will undergo posterior portion of the surgery tonight. Hospital Course Pt d/ramon home -Mechanical LBP and LE radicular pain. Status post anterior lumbar interbody fusion of L3-S1 by Dr. Scott with retroperitoneal exposure of the lumbar spine by Dr. Pandey on 05/24/2019. S/p Posterior L2-S1 ISF placement on 05/25/[address] Scott. Continue physical therapy with LSO brace on. Pt recovered well, had progress with PT. -Hypothyroidism, continue Synthroid. -Depression continue Prozac. Plan of care discussed with Dr. Leon. Home Meds Active Scripts Docusate Sodium* (Colace*) 100 Mg Capsule, 100 MG PO BID for 14 Days, CAP Prov:SINAI CORRALES 05/30/19 Hydrocodone Bit-Acetaminophen (Hydrocodone Bit-APAP) 5-325MG Tablet, 1 TAB PO Q4H PRN for .PAIN 1-5, #30 TAB Prov:SINAI CORRALES 05/30/19 Reported Medications Paroxetine Hcl* (Paroxetine*) 20 Mg Tablet, 20 MG PO DAILY, TAB 05/24/19 Levothyroxine Sodium* (Levothyroxine Sodium*) 100 Mcg Tablet, 100 MCG PO BEFORE BREAKFAST, #30 TAB 05/24/19 Levothyroxine Sodium* (Levothyroxine Sodium*) 88 Mcg Tablet, 88 MCG PO BEFORE BREAKFAST, #30 TAB TAKE ONE TABLET BY MOUTH EVERY TWO DAYS 05/24/19 Follow-up Plan F/up with Dr. Scott in 1 to 2 weeks. Primary Care Provider Not On Staff Doctor Time spent on discharge: > 30 minutes SINAI CORRALES May 30, 2019 22:11
== END 2019-05-30 16:30 | disposition home or self-care (01) | DRG 454 ==
LOC: REC 13:17 → ICU 20:16 → MS1 05-26 12:30
PROVIDERS: ADMIT Neurological Surgery; ATTEND Neurological Surgery
PROC: 06QD0ZZ Repair Left Common Iliac Vein, Open Approach (ICD-10-PCS; 2019-05-24)
PROC: 0SB20ZZ Excision of Lumbar Vertebral Disc, Open Approach (ICD-10-PCS; 2019-05-24)
PROC: 0SB40ZZ Excision of Lumbosacral Disc, Open Approach (ICD-10-PCS; 2019-05-24)
PROC: 0SG30A0 Fusion of Lumbosacral Joint with Interbody Fusion Device, Anterior Approach, Anterior Column, Open Approach (ICD-10-PCS; 2019-05-24)
PROC: 0SG10A0 Fusion of 2 or more Lumbar Vertebral Joints with Interbody Fusion Device, Anterior Approach, Anterior Column, Open Approach (ICD-10-PCS; principal; 2019-05-24 15:00)
PROC: 0SG30K1 Fusion of Lumbosacral Joint with Nonautologous Tissue Substitute, Posterior Approach, Posterior Column, Open Approach (ICD-10-PCS; 2019-05-25)
PROC: 0SG10K1 Fusion of 2 or more Lumbar Vertebral Joints with Nonautologous Tissue Substitute, Posterior Approach, Posterior Column, Open Approach (ICD-10-PCS; 2019-05-25)
PROC: 01NB0ZZ Release Lumbar Nerve, Open Approach (ICD-10-PCS; 2019-05-25)
PROC: 01NR0ZZ Release Sacral Nerve, Open Approach (ICD-10-PCS; 2019-05-25)
DX: M51.16 Intervertebral disc disorders with radiculopathy, lumbar region (principal); I97.52 Accidental puncture and laceration of a circulatory system organ or structure during other procedure; M47.26 Other spondylosis with radiculopathy, lumbar region; M48.07 Spinal stenosis, lumbosacral region; M51.17 Intervertebral disc disorders with radiculopathy, lumbosacral region; E03.9 Hypothyroidism, unspecified; F32.9 Major depressive disorder, single episode, unspecified
CPT/HCPCS: 72114; 72131; 80048; 85014; 85018; 85025; 86850; 86900; 86901; 86920; 87081; 88304; 88311; 97110; 97116; 97163; 97530; C1762; J0360; J0690; J1100; J1170; J1644; J2250; J2310; J2370; J2405; J2765; J2795; J3010; J3480; J7120